=== PATIENT | female | born 1970 | race Caucasian/White ===

== ENCOUNTER → 2017-01-02 | Outpatient (CLI) | payer OTHER | LOC: RAD 10:04 | DX: J32.0 Chronic maxillary sinusitis (principal) ==

== ENCOUNTER 2023-05-02 08:00 | Outpatient (RCR) | payer BC | END 2023-06-01 | disposition home or self-care (01) | LOC: PT | DX: M25.569 Pain in unspecified knee (principal); M54.89 Other dorsalgia ==